=== PATIENT | female | born 1950 | race Hispanic/Latino ===

== ENCOUNTER 2018-01-01 14:24 | Emergency (ER) | payer MEDICARE ==
[~2018-01-01] VITALS: Ht 152.4 cm; Wt 54.4 kg
[2018-01-01] MEDS ORDERED: ONDANSETRON HCL INJ 2 MG/ML VIAL IV STA (15:14)
[2018-01-01] MEDS ORDERED: TAMSULOSIN HCL 0.4 MG CAP PO ONE (15:15)
[2018-01-01] MEDS ORDERED: SODIUM CHLORIDE 0.9% 1000ML 1,000 ML IV SCH (15:15)
[2018-01-01] MEDS ORDERED: KETOROLAC TROMETHAMINE 30 MG/ML VIAL IV STA (15:44)
[2018-01-01 16:51] VITALS: BP 180/76
== END 2018-01-01 16:53 | disposition home or self-care (01) ==
LOC: FSED 14:24
DX: N39.0 Urinary tract infection, site not specified (principal); B96.5 Pseudomonas (aeruginosa) (mallei) (pseudomallei) as the cause of diseases classified elsewhere; R10.32 Left lower quadrant pain; I10 Essential (primary) hypertension; E11.9 Type 2 diabetes mellitus without complications; Z87.442 Personal history of urinary calculi; E78.5 Hyperlipidemia, unspecified; E03.9 Hypothyroidism, unspecified; M81.0 Age-related osteoporosis without current pathological fracture; Z78.0 Asymptomatic menopausal state; E11.65 Type 2 diabetes mellitus with hyperglycemia
CPT/HCPCS: 80053; 81003; 85025; 87086; 87186; 99284; J1885; J2405

== ENCOUNTER 2018-01-03 08:36 | Observation (INO) | payer MEDICARE ==
[~2018-01-03] VITALS: Ht 152.4 cm; Wt 54.1 kg
[2018-01-03] MEDS: HEPARIN SOD (PORCINE) 5,000 UNIT/ML VIAL SC SCH ×2 (01:30→13:22)
[2018-01-03 09:41] LABS: BASOPHILS % 0.2 % (0.0-1.0); EOSINOPHILS % 0.5 % (0.0-6.0); HEMATOCRIT 31.9 % (34.2-44.1); HEMOGLOBIN 9.8 g/dL (12.0-16.0); LYMPHOCYTES # (AUTO) 1.2 (1.0-3.2); LYMPHOCYTES % 13.3 % (18.0-39.1); MEAN CORPUSCULAR HEMOGLOBIN 24.9 pg (28-32); MEAN CORPUSCULAR HGB CONC 30.7 g/dL (31-35); MONOCYTES # (AUTO) 0.5 (0.2-0.8); NEUTROPHILS % 79.5 % (38.7-80.0); PLATELET COUNT 248 x10e3/uL (140-360); RED BLOOD COUNT 3.94 x10e6/uL (3.6-5.1); RED CELL DISTRIBUTION WIDTH 15.9 % (11.7-14.4)
[2018-01-03 09:45] LABS: INR 1.11; PARTIAL THROMBOPLASTIN TIME 28.8 seconds (23.8-35.5); PROTHROMBIN TIME 13.5 seconds (11.9-14.5)
[2018-01-03] MEDS ORDERED: ASPIRIN 81 MG CHEW TAB PO ONE (09:45)
[2018-01-03 09:52] LABS: ALANINE AMINOTRANSFERASE 20 IU/L (0-55); ALBUMIN 3.5 g/dL (3.5-5.0); ALBUMIN/GLOBULIN RATIO 0.9 (0.8-2.0); ALKALINE PHOSPHATASE 73 IU/L (40-150); ANION GAP 13.6 mmol/L (8-16); BLOOD UREA NITROGEN 19 mg/dL (7-26); BUN/CREATININE RATIO 16 (6-25); CALCIUM 9.2 mg/dL (8.4-10.2); CARBON DIOXIDE 23 mmol/L (22-29); CHLORIDE 106 mmol/L (98-107); CREATINE KINASE 39 IU/L (29-168); CREATININE, SERUM 1.16 mg/dL (0.57-1.11); EST GLOMERULAR FILTRATION RATE 46 ML/MIN (60-); GLUCOSE 187 mg/dL (74-118); POTASSIUM 3.6 mmol/L (3.5-5.1); SODIUM 139 mmol/L (136-145)
[2018-01-03 10:06] LABS: BILIRUBIN,URINE NEGATIVE (NEGATIVE); CLARITY,URINE SL CLOUDY (CLEAR); COLOR,URINE YELLOW (YELLOW); KETONES,URINE NEGATIVE (NEGATIVE); LEUKOCYTE ESTERASE ,URINE 2+ (NEGATIVE); NITRITE,URINE NEGATIVE (NEGATIVE); PROTEIN,URINE DIPSTICK TRACE (NEGATIVE); URINE UROBILINOGEN 0.2 mg/dL (0.2 - 1)
--- NOTE | 2018-01-03 10:18 | Diagnostic Imaging Report ---
PROCEDURE: CHEST SINGLE (PORTABLE) COMPARISON: None. INDICATIONS: RIGHT ARM NUMBNESS FINDINGS: LUNGS: No consolidations or edema. PLEURA: No effusions or pneumothorax. HEART \T\ MEDIASTINUM: The heart is within normal size-limits. There is calcification within the aortic knob. BONES \T\ SOFT TISSUES: No acute findings. CONCLUSION: No acute thoracic abnormality. Saul Vasquez D.O. Dictated by: Saul Vasquez D.O. on 01/03/2018 at 10:22 Electronically approved by: Saul Vasquez D.O. on 01/03/2018 at 10:22
--- NOTE | 2018-01-03 10:35 | Diagnostic Imaging Report ---
History:Numbness in the right hand Comparison studies:None Technique: Axial images were obtained from the skull base to the vertex. Coronal and sagittal images reconstructed from the axial data. Intravenous contrast: None Findings: Scalp/skull: No abnormalities. Extra-axial spaces: No masses. No fluid collections. Brain sulci: Age-appropriate. Ventricles: Age-appropriate. No hydrocephalus. Parenchyma: Few hypodensities in the supratentorial white matter are small vessel ischemic changes. No masses, hemorrhage, acute or chronic cortical vascular insults. Sellar/suprasellar region: No abnormalities. Craniocervical junction: Patent foramen magnum. No Chiari one malformation. Incidental findings: Mild atherosclerotic calcifications in the carotid siphons . Partial opacification and mucosal thickening of the bilateral maxillary, right sphenoid and left posterior ethmoid sinuses Impression: No acute abnormalities. Chronic findings: 1. Mild supratentorial white matter small vessel ischemic changes. 2. Inflammatory changes of the paranasal sinuses Signed by: DR Adolfo Ramos M.D. on 01/03/2018 10:31 AM
[2018-01-03 10:39] LABS: BACTERIA,URINE FEW /HPF; EPITHELIAL CELLS,URINE MODERATE /LPF; WBC,URINE (MAN) 21-50 /HPF (0-5)
[2018-01-03] MEDS ORDERED: ONDANSETRON HCL INJ 2 MG/ML VIAL IV PRN (11:30)
[2018-01-03] MEDS ORDERED: DEXTROSE 50% SYRINGE 50 ML IV PRN (11:30)
[2018-01-03] MEDS: INSULIN REGULAR, HUMAN 100 UNIT/1 ML 3ML VIAL SQ SCH ×3 (11:41→21:00)
[2018-01-03 12:39] VITALS: BP 138/63
[2018-01-03 12:40] VITALS: BP 138/63
[2018-01-03] MEDS: SODIUM CHLORIDE 0.9% 1000ML 1,000 ML IV SCH (12:59)
[2018-01-03] MEDS: CEFTRIAXONE SOD 1 GM VIAL IV SCH (12:59)
[2018-01-03] MEDS ORDERED: IOPAMIDOL 370 MG/ML 200 ML INFUS..BTL INJ ONE (13:40)
[2018-01-03] MEDS ORDERED: SODIUM CHLORIDE 0.9% 100 ML ONE (13:41)
--- NOTE | 2018-01-03 14:33 | Diagnostic Imaging Report ---
History: Numbness in right hand Comparison studies: CT head 01/03/2018 Technique: Sagittal T2; axial DWI, FLAIR, MPGR, T1, Coronal FLAIR. Intravenous contrast: None Findings: Scalp: Normal in signal . No masses . Bone marrow: Normal in signal intensity. Extra-axial: No masses, no fluid collections. Brain sulci: Appropriate for age. Ventricles: Normal in size . No hydrocephalus . Parenchyma: Few small T2/flair hyperintensities of the periventricular and deep white matter. No masses, hemorrhage, acute or chronic vascular insults. Suprasellar region: No abnormalities. Craniocervical junction: No abnormalities. Patent foramen magnum. No Chiari one malformation. Vessels: Normal flow-voids in the arteries and sinuses. Inflammatory changes of the paranasal sinuses are again seen IMPRESSION: 1. No acute abnormalities. 2. Minimal chronic microvascular ischemic changes of the white matter. 3. Inflammatory changes of the paranasal sinuses Signed by: DR Adolfo Ramos M.D. on 01/03/2018 2:29 PM
--- NOTE | 2018-01-03 15:48 | Diagnostic Imaging Report ---
History: Right arm and hand numbness Comparison studies:MRI brain and CT head 01/03/2018 Technique: Axial images were obtained from the thoracic inlet. Coronal and sagittal images reconstructed from the axial data. Intravenous contrast: 100 cc of Omnipaque 300. Findings: Percentage of stenosis will be based on the NASCET criteria. Aortic arch and major vessels: Patent. No abnormalities. Common carotid arteries: Patent. Nonstenotic atherosclerotic plaque at the origin and mid left common carotid artery. No abnormalities at the right common carotid artery. Right internal carotid artery: Patent. Less than 10% atherosclerotic calcifications of the bulb. Left internal carotid artery: Patent. Nonstenotic atherosclerotic calcifications at the proximal left internal carotid artery. Right vertebral artery: Patent. No abnormalities. Left vertebral artery: Patent. Dominant right No abnormalities. Uncinate process hypertrophy results in mild bilateral foraminal narrowing at C4-5 and C5-6. Inflammatory changes of the paranasal sinuses are again seen IMPRESSION: No hemodynamically significant stenosis of the neck arteries.. Signed by: DR Adolfo Ramos M.D. on 01/03/2018 3:45 PM
[2018-01-03 16:00] VITALS: BP_SYST 141; BP_SYST 152; BP_DIAS 65; BP_DIAS 68
--- NOTE | 2018-01-03 18:58 | Consultation ---
DATE OF CONSULTATION: January 03, 2018 NEUROLOGY CONSULTATION HISTORY OF PRESENT ILLNESS: Ms. Cheng is a 67-year-old right hand dominant woman with past medical history significant for hypertension, hyperlipidemia, and diabetes mellitus type 2, admitted to [facility] on January 03, 2018, with symptoms concerning for a transient ischemic attack. At approximately 0530 on the day of admission, the patient awoke with weakness and numbness affecting her left hand and arm, hand greater than arm. Mr. Cheng does not endorse burning pain, tingling, or radicular pain affecting the right arm. She does not report a visual field cut or other impairment, dysarthria, aphasia, facial droop, poor balance, gait impairment, dizziness, confusion, or headache associated with the above symptoms. Believing the symptoms were due to sleeping on her arm, the patient went back to sleep. When she woke at 0730 on the day of admission, the symptoms persisted. At that time, the patient proceeded to the emergency center at [facility] for further evaluation and treatment. Upon admission to the emergency center, the patient was afebrile with a blood pressure of 132/64 mmHg and a pulse of 77 beats per minute. Her neurological examination was significant for mild weakness affecting the right hand and arm. A CT of the brain without contrast was performed in the emergency center and did not reveal recent large territorial ischemia or hemorrhage. While in the emergency center, the patient's symptoms significantly improved. Ms. Cheng was admitted to [facility] under observation status on January 03, 2018, for further evaluation and treatment of her symptoms. The patient has not experienced similar symptoms previously. REVIEW OF SYSTEMS: Weakness of the right arm and hand, numbness of the right arm and hand. PAST MEDICAL HISTORY: Hypertension, hyperlipidemia, diabetes mellitus type 2, thyroid disease, nephrolithiasis, and osteoporosis. PAST SURGICAL HISTORY: Exploratory laparotomy. PAST HOSPITALIZATIONS: Surgeries/procedures as listed, childbirth times 5. FAMILY HISTORY: The patient's paternal and maternal grandparents are . Their medical histories are unknown. The patient's mother and father are both from emphysema and lung cancer. Ms. Cheng had 11 brothers and sisters. Two brothers and 2 sisters are living. Both brothers and 1 sister have diabetes mellitus. One brother is from lung cancer. Another brother is . He was an alcoholic and from an unknown cancer. The patient has 2 sons and 3 daughters. All are alive and healthy. SOCIAL HISTORY: Ms. Cheng is . She completed school through the 9th grade. The patient is a housewife and caregiver. Ms. Cheng does not report current or prior tobacco, alcohol, or recreational drug use. HOME MEDICATIONS: Aspirin 81 mg by mouth every other day, lisinopril 10 mg by mouth daily, pravastatin 40 mg by mouth daily, Januvia 100 mg by mouth daily, pioglitazone 50 mg by mouth daily, glipizide/metformin 5/500 mg by mouth twice daily with meals, levothyroxine 100 mcg by mouth every morning, Zofran 4 mg oral dissolving tablet every 6 hours as needed for nausea, tamsulosin 0.4 mg by mouth daily for 7 days, ciprofloxacin 500 mg by mouth twice daily for 10 days, Ketoralac 10 mg by mouth every 6 hours as needed for pain. ALLERGIES: NO KNOWN DRUG ALLERGIES. NO KNOWN FOOD ALLERGIES. NO KNOWN ALLERGIES TO LATEX. NO KNOWN ALLERGIES TO IODINE OR OTHER CONTRAST MATERIALS. PHYSICAL EXAMINATION: VITAL SIGNS: Height 60 inches, weight 119 pounds, BMI 23.3 kg per meter squared. Blood pressure 152/68 mmHg. Pulse 70 beats per minute. Respiratory rate 16 breaths per minute. Oxygen saturation 97% on room air. GENERAL: The patient is awake and alert, does not appear distressed. HEENT: Normocephalic, atraumatic. Pupils are equal, round, and reactive to light. Moist mucous membranes. NECK: Supple. No appreciable thyromegaly. No appreciable carotid bruits. CARDIOVASCULAR: S1, S2, regular rate and rhythm. No murmurs, rubs, or gallops. RESPIRATORY: Clear to auscultation bilaterally. No wheezes, rhonchi, or rales. EXTREMITIES: The skin is warm and dry. No clubbing, cyanosis, or edema. The posterior tibial and dorsalis pedis pulses are 1+ and symmetric. SKIN: No rashes or lesions. NEUROLOGIC Memory/Attention: The patient is awake and alert, oriented to person, place, time, and situation. Cranial Nerves: Cranial nerve 1--Not tested. Cranial nerve 2, 3, 4, and 6--Pupils are equal and round, react briskly to light (from 4 mm to 2 mm). Extraocular movements intact. No nystagmus. Cranial nerve 5--Sensation to light touch and pinprick is intact in the bilateral V1 through V3 distributions. Strength of the temporalis and masseter muscles is within normal limits. Cranial nerve 7--The face is symmetric, as are all facial movements. Strength is within normal limits. Cranial nerve 8--Hearing is intact to finger rub bilaterally. Cranial nerve 9, 10--The soft palate elevates equally and symmetrically. Cranial nerve 11--Normal strength of the bilateral sternocleidomastoid and trapezius muscles. Cranial nerve 12--The tongue protrudes midline and moves symmetrically from side to side. Strength: Bulk is normal. Strength is 5/5 in the bilateral deltoids, biceps, triceps, wrist flexors and extensors, finger flexors and extensors, intrinsic hand muscles, hip flexors, knee flexors and extensors, ankle dorsiflexion and plantarflexion, and intrinsic foot muscles except as follows: Right wrist extensors are 4+ out of 5 (effort dependent weakness), right finger extensors are 4+ out of 5 (effort dependent weakness). Tone is normal. DTRs: Deep tendon reflexes are 1+ and symmetric at the triceps, biceps, brachioradialis, and patellas. Deep tendon reflexes are absent and symmetric at the Achilles. Plantar responses are flexor bilaterally. Sensation: Sensation is intact to light touch and pinprick in both arms and both legs. Cerebellar: Tmqlal-[id number]-hppxph and heel-fontenot movements are intact without dysmetria or other impairment. Gait: Deferred. Speech: Spontaneous speech is normal without appreciable dysarthria or aphasia. Repetition is intact. Involuntary Movements: None. Pronator Drift: None. LABORATORY DATA: Sodium 139, potassium 3.6, chloride 106, carbon dioxide 23, anion gap 13.6, BUN 19, creatinine 1.16, estimated GFR 46, BUN to creatinine ratio 16, glucose 187, calcium 9.2. Total bilirubin 0.9, AST 17, ALT 20, alkaline phosphatase 73. Total protein 7.6, albumin 3.5, globulin 4.1, albumin to globulin ratio 0.9. Creatine kinase 39, CK-MB 0.50, troponin I less than 0.001. The CBC with differential and platelets reveals a white blood cell count of 8.84 with 79.5% neutrophils, 13.3% lymphocytes, 6.0% monocytes, 0.5% eosinophils, and 0.2% basophils. The hemoglobin and hematocrit are 9.8 and 31.9, respectively. The platelet count 248. PT 13.5, INR 1.11, PTT 28.8. A urinalysis reveals trace protein, 2+ blood, 2+ leukocyte esterase, 6 to 10 red blood cells, and 21 to 50 white blood cells. DIAGNOSTIC STUDIES: Electrocardiogram of January 03, 2018: Normal sinus rhythm at 77 beats per minute. Chest x-ray of January 03, 2018: No acute thoracic abnormality. CT of the brain without contrast January 03, 2018: On my review, there is no evidence of recent large territorial ischemia, hemorrhage, mass, or mass effect. Echocardiogram of January 03, 2018: Ejection fraction 60% to 65%. Mild mitral regurgitation. Mild aortic insufficiency. Mild pulmonic insufficiency. Bilateral carotid artery ultrasound with Doppler January 03, 2018: Possible hemodynamically significant stenoses at the right internal carotid artery and left carotid bulb, carotid bifurcation, and __right internal carotid artery. Antegrade flow in bilateral vertebral arteries. MRI of the brain without contrast January 03, 2018: On my review, there is no evidence of recent large territorial ischemia, hemorrhage, mass, or mass effect. There is mild diffuse cerebral atrophy, appropriate for age. There are scattered nonspecific T2/FLAIR hyper-intensities compatible with chronic small vessel ischemic disease. Inflammatory changes of the paranasal sinuses are seen. CTA of the neck January 03, 2018: No hemodynamically significant stenosis of the carotid or vertebral arteries. ASSESSMENT AND PLAN: Ms. Cheng is a 67-year-old right hand dominant woman with multiple vascular risk factors, admitted with a transient ischemic attack in the subcortical left middle cerebral artery distribution. Other than some mild weakness of the right wrist and finger extensors which appears to be effort dependent, her neurological examination is nonfocal. The patient's laboratory data and other diagnostic studies have been reviewed and are documented above. A complete stroke evaluation has been ordered and is completed with the exception of the following: Lipid panel and hemoglobin A1c. RECOMMENDATIONS: 1. Aspirin 325 mg by mouth daily for stroke prophylaxis. 2. Allow permissive hypertension for 24 to 48 hours following the transient ischemic attack. The patient may resume treatment with her home antihypertensive medication of lisinopril 10 mg by mouth daily on January 04, 2018. 3. Follow up the lipid panel. Continue the patient's home medication of pravastatin 40 mg by mouth at bedtime daily. 4. Follow up the hemoglobin A1c. An insulin sliding scale has been ordered. Hold metformin for 48 hours following administration of iodinated contrast. 5. GI prophylaxis with Pepcid 20 mg by mouth twice daily before meals. DVT prophylaxis with heparin 5000 units subcutaneously every 12 hours as ordered by the primary service. 6. Speech and physical therapy consultations will be deferred secondary to the patient having no appreciable deficits. 7. Defer treatment of the remaining medical comorbidities to the primary and other services following the patient. Thank you for this consultation. I will continue to follow the patient while she remains in the hospital. Time spent: 70 minutes. Job#: [id number]
[2018-01-03 20:00] VITALS: BP 151/69
[2018-01-03 20:10] VITALS: BP 151/69
[2018-01-03] MEDS ORDERED: PRAVASTATIN 20 MG TAB PO SCH (21:00)
[2018-01-04] VITALS: BP 135/62
[2018-01-04] MEDS: HEPARIN SOD (PORCINE) 5,000 UNIT/ML VIAL SC SCH ×2 (01:30→08:42)
[2018-01-04] MEDS: SODIUM CHLORIDE 0.9% 1000ML 1,000 ML IV SCH (01:47)
[2018-01-04 04:00] VITALS: BP 125/60
[2018-01-04 05:49] LABS: BASOPHILS % 0.4 % (0.0-1.0); EOSINOPHILS # (AUTO) 0.1 (0.0-0.4); EOSINOPHILS % 1.5 % (0.0-6.0); HEMATOCRIT 28.1 % (34.2-44.1); HEMOGLOBIN 8.7 g/dL (12.0-16.0); LYMPHOCYTES # (AUTO) 1.3 (1.0-3.2); LYMPHOCYTES % 27.5 % (18.0-39.1); MEAN CORPUSCULAR HEMOGLOBIN 25.4 pg (28-32); MEAN CORPUSCULAR VOLUME 82.2 fL (81-99); MONOCYTES # (AUTO) 0.4 (0.2-0.8); MONOCYTES % 8.2 % (4.4-11.3); NEUTROPHILS # (AUTO) 2.9 (2.1-6.9); NEUTROPHILS % 62.2 % (38.7-80.0); PLATELET COUNT 217 x10e3/uL (140-360); RED BLOOD COUNT 3.42 x10e6/uL (3.6-5.1); RED CELL DISTRIBUTION WIDTH 15.8 % (11.7-14.4)
[2018-01-04 06:06] LABS: ANION GAP 12.2 mmol/L (8-16); BLOOD UREA NITROGEN 15 mg/dL (7-26); BUN/CREATININE RATIO 19 (6-25); CALCIUM 8.8 mg/dL (8.4-10.2); CARBON DIOXIDE 23 mmol/L (22-29); CHLORIDE 112 mmol/L (98-107); CHOL/HDL RATIO 3.6 (3.0-3.6); CHOLESTEROL 167 MD/DL (0-199); CREATININE, SERUM 0.81 mg/dL (0.57-1.11); EST GLOMERULAR FILTRATION RATE > 60 ML/MIN (60-); GLUCOSE 142 mg/dL (74-118); HDL CHOLESTEROL 46 MG/DL (40-60); LDL CHOLESTEROL 98 MG/DL (60-130); POTASSIUM 4.2 mmol/L (3.5-5.1); SODIUM 143 mmol/L (136-145); TRIGLYCERIDES 117 MG/DL (0-149)
[2018-01-04] MEDS ORDERED: FAMOTIDINE 20 MG TAB PO SCH (07:30)
[2018-01-04 07:48] VITALS: BP 142/65
[2018-01-04] MEDS: INSULIN REGULAR, HUMAN 100 UNIT/1 ML 3ML VIAL SQ SCH ×2 (08:55→11:43)
[2018-01-04] MEDS ORDERED: ASPIRIN 325 MG TAB EC PO SCH (09:00)
[2018-01-04] MEDS ORDERED: ASPIRIN 81 MG ENTERIC COATED PO SCH ×2 (09:00)
[2018-01-04] MEDS ORDERED: HEPARIN SOD (PORCINE) 5,000 UNIT/ML VIAL SC SCH ×2 (10:45→13:30)
--- NOTE | 2018-01-04 11:07 | Discharge Summary ---
PRIMARY CARE DOCTOR: Dr. Garibay with [facility]. FINAL DIAGNOSIS: Transient ischemic attack. SECONDARY DIAGNOSES 1. Hypertension. 2. Diabetes. 3. Nephrolithiasis. 4. Hypothyroidism. 5. Dyslipidemia. CONSULTANTS: Dr. Morejon, neurology. PROCEDURES/STUDIES PERFORMED 1. MRI of the brain. 2. CTA of the neck. HISTORY: Per [facility] HOSPITAL COURSE: The patient was admitted. Her right arm weakness pretty much has resolved. Initially, her preliminary carotid Doppler showed some stenosis. However, CTA of the neck was benign. MRI of the brain is negative as well. Per neurology, we feel that this is a TIA. Since she was only on a baby aspirin every other day at home, this is not considered an aspirin failure. The patient was told to increase her aspirin to full dose, and to take it every day with food. She was told to hold her metformin until tomorrow night since she received IV contrast. Her hemoglobin A1c was 8.1%. Her TSH is slightly depressed at 0.282. I will inform her PCP to cut down on her levothyroxine if this was not done recently. Her LDL is 98. She is already on cholesterol medicines at home. The patient was seen and examined today. CONDITION ON DISCHARGE: Stable. DISCHARGE MEDICATIONS: Please see medication reconciliation form. BRIA VOGEL M.D. Job#: [id number] RI cc:LORENZO GARIBAY MD
[2018-01-04] MEDS: CEFTRIAXONE SOD 1 GM VIAL IV SCH (11:33)
[2018-01-04 11:53] VITALS: BP 154/84
== END 2018-01-04 12:46 | disposition home or self-care (01) ==
LOC: ER 08:36 → ERHOLD 11:35 → IMCU 12:39 → MED/SURG 17:21
PROVIDERS: ADMIT Internal Medicine; ATTEND Internal Medicine
DX: G45.9 Transient cerebral ischemic attack, unspecified (principal); N39.0 Urinary tract infection, site not specified; R31.9 Hematuria, unspecified; I10 Essential (primary) hypertension; E11.9 Type 2 diabetes mellitus without complications; E78.5 Hyperlipidemia, unspecified; E03.9 Hypothyroidism, unspecified; Z83.3 Family history of diabetes mellitus; Z87.442 Personal history of urinary calculi; N20.0 Calculus of kidney
CPT/HCPCS: 36415 ×2; 70450; 70498; 70551; 71045; 80048; 80053; 80061; 81001; 82550; 82553; 82948 ×2; 83036; 84443; 84484; 85025 ×2; 85610; 85730; 93005 ×2; 93306; 93880; 97116; 97161; 99284; G0378 ×2; G8978; G8979; G8980; J0696 ×2; J1644 ×2; J7030 ×2; J7050; Q9967

== ENCOUNTER 2019-03-31 13:45 | Emergency (ER) | payer MEDICARE ==
[~2019-03-31] VITALS: Ht 149.9 cm; Wt 62.1 kg
--- NOTE | 2019-03-31 15:41 | Diagnostic Imaging Report ---
Left foot, 3 views. History: Left foot and heel pain. Findings: There are vascular calcifications. Bone mineralization is normal. A transverse cortical lucency is seen along the inferior anterior aspect of the calcaneus with surrounding sclerotic bone reaction, seen only on the lateral view. Small plantar calcaneal spur is also noted. There is no evidence of displaced fracture or dislocation. Mild degenerative changes are present in the toes. IMPRESSION: Findings suggestive of a subacute nondisplaced anterior inferior calcaneal fracture. Signed by: Silvano Hutchinson on 03/31/2019 3:38 PM
[2019-03-31 17:08] VITALS: BP 157/67
== END 2019-03-31 17:10 | disposition home or self-care (01) ==
LOC: FSED 13:45
DX: M79.672 Pain in left foot (principal); M77.32 Calcaneal spur, left foot; R26.2 Difficulty in walking, not elsewhere classified; S90.32XA Contusion of left foot, initial encounter; W22.09XA Striking against other stationary object, initial encounter; Y93.01 Activity, walking, marching and hiking; Y92.008 Other place in unspecified non-institutional (private) residence as the place of occurrence of the external cause; I10 Essential (primary) hypertension; E11.65 Type 2 diabetes mellitus with hyperglycemia
CPT/HCPCS: 99283